=== PATIENT | male | born 1970 | race Caucasian/White ===

== ENCOUNTER → 2016-12-24 | Outpatient (CLI) | payer BC ==
--- NOTE | 2016-12-27 07:32 | XR ---
EXAMINATION TYPE: XR abdomen 1V DATE OF EXAM: 12/24/2016 5:02 PM COMPARISON: NONE HISTORY: Pain TECHNIQUE: Single supine KUB image of the abdomen is obtained FINDINGS: Small bowel demonstrates no evidence for dilatation or air fluid levels. Gas and fecal material is seen in non-distended colon. No convincing evidence for pneumoperitoneum. No unusual calcifications. The lung bases are clear. The osseous structures are intact. IMPRESSION: 1. Overall nonobstructive bowel gas pattern.
== END ==
LOC: RADXRYALE 16:59
PROVIDERS: ATTEND Physician Assistant Medical
DX: M54.40 Lumbago with sciatica, unspecified side (principal)
CPT/HCPCS: 74000

== ENCOUNTER → 2016-12-31 | Outpatient (CLI) | payer BC ==
--- NOTE | 2016-12-31 11:16 | US ---
EXAMINATION TYPE: US kidneys/renal and bladder DATE OF EXAM: 12/31/2016 9:51 AM COMPARISON: NONE CLINICAL HISTORY: M45.5 LOW BACK PAIN,R31.9 HEMATURIA. EXAM MEASUREMENTS: Right Kidney: 13.6 x 5.2 x 5.4 cm Left Kidney: 12.9 x 5.6 x 5.2 cm TECHNOLOGIST IMPRESSION: Patient of large body habitus Right Kidney: No hydronephrosis or masses seen, measures large Left Kidney: No hydronephrosis or masses seen, measures large Bladder: wnl There is no evidence for hydronephrosis at this point in time. No nephrolithiasis is seen. No akiko s are identified. The urinary bladder is anechoic. Bilateral ureteral jets are seen. IMPRESSION: Normal renal ultrasound.
== END | disposition home or self-care (01) ==
LOC: RADUSWWP 09:06
PROVIDERS: ATTEND Family Medicine
DX: R31.9 Hematuria, unspecified (principal); M54.5 Low back pain
CPT/HCPCS: 76770

== ENCOUNTER → 2017-07-13 | Outpatient (CLI) | payer BC ==
[2017-07-13 19:03] LABS: CH 28.6; CHCM 34.4; HCT 42.3 % (39.0-53.0); HDW 2.68; HGB 14.9 gm/dL (13.0-17.5); MCH 29.4 pg (25.0-35.0); MCHC 35.1 g/dL (31.0-37.0); MCV 83.6 fL (80.0-100.0); RBC 5.06 m/uL (4.30-5.90); RDW 13.6 % (11.5-15.5); WBC 5.6 k/uL (3.8-10.6)
[2017-07-13 19:19] LABS: Anion Gap 9 mmol/L; Blood Urea Nitrogen 17 mg/dL (9-20); Carbon Dioxide 27 mmol/L (22-30); Chloride 107 mmol/L (98-107); Non-African American GFR(MDRD) >60 (>60 ml/min/1.73 sqM); Potassium 4.1 mmol/L (3.5-5.1); Sodium 143 mmol/L (137-145)
== END | disposition home or self-care (01) ==
LOC: LAB 18:35
PROVIDERS: ATTEND Internal Medicine Interventional Cardiology
DX: Z01.812 Encounter for preprocedural laboratory examination (principal); R07.9 Chest pain, unspecified
CPT/HCPCS: 80051; 82565; 84520; 85027

== ENCOUNTER 2017-07-19 08:01 | Day surgery (SDC) | payer BC ==
[2017-07-14 09:52] VITALS: BMI 43.0
[~2017-07-19 08:01] MED LIST: ALPRAZolam 0.25 MG TAB PO PRN; ALPRAZolam 0.5 MG TAB PO PRN; ASPIRIN 325 MG TAB PO STA; ATORVASTATIN 80 MG TAB PO STA; NITROGLYCERIN SL TABS 0.4 MG TAB SUBLINGUAL PRN; SODIUM CHLORIDE 0.9% 1,000 ML in EMPTY BAG 1 BAG IV ONE
[2017-07-19] MEDS: SODIUM CHLORIDE 0.9% 1,000 ML IV ONE ×2 (08:30→09:15)
[2017-07-19 08:31] VITALS: RESP 16; TEMP 98.2
[2017-07-19] MEDS ORDERED: LIDOCAINE 2% INJ 20 MG/ML (20 ML MDV) ONE (08:48)
[2017-07-19] MEDS ORDERED: VERAPAMIL 2.5 MG/ML 2 ML AMP ONE (08:48)
[2017-07-19] MEDS ORDERED: MIDAZOLAM 2 MG/2 ML VIAL ONE (09:05)
[2017-07-19] MEDS ORDERED: MIDAZOLAM 2 MG/2 ML VIAL IV ONE (09:14)
[2017-07-19] MEDS ORDERED: HEPARIN SODIUM 1,000 UN/ML (10ML VL) ONE (09:20)
[2017-07-19] MEDS ORDERED: HEPARIN SODIUM 1,000 UN/ML (10ML VL) IV ONE (09:21)
[2017-07-19] MEDS: VERAPAMIL SYRINGE (5 MG/10 ML) IV ONE ×2 (09:21→09:30)
[2017-07-19] MEDS ORDERED: IOHEXOL 350 MG/ML 125ML BOTTLE INJ ONE (09:29)
[2017-07-19] MEDS ORDERED: RX INFO: IV CONTRAST WAS GIVEN 1 EACH MISC MISCELLANE PRN (09:38)
[2017-07-19] MEDS ORDERED: SODIUM CHLORIDE 0.9% 1,000 ML IV SCH (09:45)
--- NOTE | 2017-07-19 10:37 | CC ---
CARDIAC CATHETERIZATION REPORT PERFORMING PHYSICIAN: Devonte Hatfield M.D., knife finisher. PROCEDURE PERFORMED: 1. Selective right and left coronary angiogram. 2. Left heart catheterization. 3. Left ventriculography. INDICATION: This is a pleasant 47-year-old male gentleman with a past medical history significant for hypertension, who was experiencing chest discomfort and underwent a stress echocardiogram which showed EKG changes consistent with ischemia. He was brought today to undergo a heart catheterization. APPROACH: Right radial artery. COMPLICATION: None. LEVEL OF SEDATION: Moderate with a sedation length of 17 minutes. PROCEDURE DESCRIPTION: After obtaining an informed consent, the patient was brought to the cardiac sawyer cork slabs. The right common femoral artery was cannulated using micropuncture technique. The micropuncture wire passed easily. Then I placed a 6-Montserratian sheath in the right common femoral artery. Subsequently I gave the patient 2 mg of verapamil IA and 3000 units of heparin IV. After that, I did selective right and left coronary angiogram using JR4 and JL3.5 catheters. Both catheters were 5-Montserratian. After that, I did left heart catheterization and subsequently LV gram using 5-Montserratian catheter as well which was a pigtail catheter. The procedure was completed without any complication. SELECTIVE CORONARY ANGIOGRAM: 1. The right coronary artery is a medium-caliber vessel and it is a nondominant vessel. It is angiographically normal. 2. The left main is angiographically normal. It bifurcates into a left circumflex and left anterior descending artery. 3. The left circumflex is a large-caliber vessel. It is a dominant vessel. The proximal left circumflex is angiographically normal. The mid left circumflex is normal as well and gives rise into a large OM branch which seems to be angiographically normal. The left circumflex distally is normal and bifurcates into PDA and PLV branches. Both are angiographically normal. 4. The left anterior descending artery. The proximal LAD is angiographically normal. The mid LAD is normal and gives rise into a large diagonal branch which seems to be angiographically normal. The mid LAD distally he is angiographically normal. HEMODYNAMICS: The left ventricular end-diastolic pressure was 12 mmHg and no gradient was identified across aortic valve. Left ventriculography was performed in the [place] projection and using a power injection. Left ventricular systolic function is normal with EF about 50% without any wall motion abnormalities. CONCLUSION: 1. Normal coronary angiogram. 2. Dominant left circumflex coronary system. 3. Normal left ventricular end-diastolic pressure. 4. Normal left ventricular systolic function. MMODL / IJN: [id number] /
[2017-07-19 12:22] VITALS: BP 144/72; PULSE 72
== END 2017-07-19 14:43 | disposition home or self-care (01) ==
LOC: CATHCVL 08:01
PROVIDERS: ATTEND Internal Medicine Interventional Cardiology
DX: R07.89 Other chest pain (principal); R94.39 Abnormal result of other cardiovascular function study; I10 Essential (primary) hypertension; E78.5 Hyperlipidemia, unspecified; Z79.899 Other long term (current) drug therapy
CPT/HCPCS: 93458; 99152; C1894; J2250; J1644; Q9967

== ENCOUNTER → 2018-06-06 | Outpatient (CLI) | payer BC ==
--- NOTE | 2018-06-06 18:15 | US ---
EXAMINATION TYPE: US venous doppler duplex LE BI DATE OF EXAM: 06/06/2018 6:07 PM COMPARISON: NONE CLINICAL HISTORY: I82.401,I82.402,M79.661,M79.662 Leg pain/swelling. SIDE PERFORMED: Bilateral TECHNIQUE: The lower extremity deep venous system is examined utilizing real time linear array sonog peggy with graded compression, doppler sonography and color-flow sonography. VESSELS IMAGED: External Iliac Vein (EIV) Common Femoral Vein Deep Femoral Vein Greater Saphenous Vein * Femoral Vein Popliteal Vein Small Saphenous Vein * Proximal Calf Veins (* superficial vessels) Technically difficult study, morbidly obese patient. Right Leg: Negative for DVT Left Leg: Negative for DVT IMPRESSION: Negative exam. No evidence of deep venous thrombosis in both legs.
== END | disposition home or self-care (01) ==
LOC: RADUSMAIN 17:29
PROVIDERS: ATTEND Orthopaedic Surgery
DX: M79.661 Pain in right lower leg (principal); M79.662 Pain in left lower leg; Z86.718 Personal history of other venous thrombosis and embolism
CPT/HCPCS: 93970

== ENCOUNTER → 2019-02-06 | Outpatient (CLI) | payer BC ==
--- NOTE | 2019-02-07 10:03 | XR ---
EXAMINATION TYPE: XR foot complete LT DATE OF EXAM: 02/06/2019 COMPARISON: None HISTORY: Pain fifth metatarsal TECHNIQUE: Three-view left foot is examined. FINDINGS: No acute fractures are evident. Joint spaces are preserved. Soft tissues are normal. Follow-up exams can be performed 7-10 days from acute trauma for continued pain. IMPRESSION: 1. Normal three-view left foot. 2. No suspicious osseous abnormality 5th Metatarsal
== END | disposition home or self-care (01) ==
LOC: RADXRYALE 16:26
PROVIDERS: ATTEND Physician Assistant Medical
DX: M79.672 Pain in left foot (principal)

== ENCOUNTER → 2019-12-26 | Outpatient (CLI) | payer BC ==
--- NOTE | 2019-12-27 07:17 | XR ---
EXAMINATION TYPE: XR knee complete LT DATE OF EXAM: 12/26/2019 CLINICAL HISTORY: Increasing acute on chronic left knee pain TECHNIQUE: Three views of the left knee are obtained. COMPARISON: None. FINDINGS: There is no acute fracture/dislocation evident in left knee. The tri-compartment joint sp aces appear aligned with small bicompartmental osteophytes of the patellofemoral compartment and medi al compartment. The overlying soft tissue appears unremarkable. IMPRESSION: There is no acute fracture or dislocation in the left knee. Mild bicompartmental arthrop athy.
== END | disposition home or self-care (01) ==
LOC: RADXRYALE 15:47
PROVIDERS: ATTEND Physician Assistant
DX: M12.862 Other specific arthropathies, not elsewhere classified, left knee (principal)

== ENCOUNTER 2020-09-01 10:21 | Day surgery (SDC) | payer BC ==
[2020-08-29 12:47] VITALS: BMI 43.0
[~2020-09-01 10:21] MED LIST changes: -ALPRAZolam 0.25 MG TAB PO PRN; -ALPRAZolam 0.5 MG TAB PO PRN; -ASPIRIN 325 MG TAB PO STA; -ATORVASTATIN 80 MG TAB PO STA; +LACTATED RINGERS 1,000 ML IV SCH; -NITROGLYCERIN SL TABS 0.4 MG TAB SUBLINGUAL PRN; -SODIUM CHLORIDE 0.9% 1,000 ML in EMPTY BAG 1 BAG IV ONE
[2020-09-01 10:44] VITALS: RESP 16; TEMP 97.2
[2020-09-01] MEDS ORDERED: LIDOCAINE 1% (10MG/ML) FOR IV START INTRADERMA ONE (10:45)
[2020-09-01] MEDS ORDERED: PROPOFOL 10 MG/ML 20 ML VIAL IV ONE (11:28)
[2020-09-01] MEDS ORDERED: LIDOCAINE 1% INJ 10MG/ML (20 ML MDV) ONE (11:28)
--- NOTE | 2020-09-01 11:58 | P.PCN ---
Date of Procedure: 09/01/20 Description of Procedure: BRIEF HISTORY: Patient is a 50-year-old male presented for outpatient colonoscopy for family history of colon cancer. He reports having multiple colonoscopies in the past starting at the age of 39. His father was diagnosed with colon cancer at the age of 40. PROCEDURE PERFORMED: Colonoscopy with polypectomy . PREOPERATIVE DIAGNOSIS: Family history of colon cancer, last colonoscopy 5 years ago. ESTIMATED BLOOD LOSS: Minimal. IV sedation per Anesthesia. PROCEDURE: After informed consent was obtained, the patient, was brought into the endoscopy unit. IV sedation was administered by Anesthesia under continuous monitoring. Digital rectal examination was normal. Initially the Olympus CF-190 flexible video colonoscope was then inserted in the rectum, gradually advanced into the cecum without any difficulty. Careful examination was performed as the scope was gradually being withdrawn. Ileocecal valve and the appendiceal orifice were visualized and appeared normal. Prep was excellent. Mucosa of the cecum, ascending colon, transverse colon, descending colon, sigmoid colon, and rectum appeared normal. A small 3 mm transverse colon polyp was removed with cold snare polypectomy. Retroflexion was performed in the rectum and no lesions were seen. The patient tolerated the procedure well. IMPRESSION: Small transverse colon polyp removed with cold snare polypectomy. Otherwise normal-appearing colon from rectum to cecum. RECOMMENDATIONS: Findings of this examination were discussed with the patient in his . Okay to resume diet. Okay to resume medications. Await pathology from polypectomy. Would recommend repeat colonoscopy in 5 years for family history of colon cancer..
[2020-09-01 12:47] VITALS: BP 108/75; PULSE 51
== END 2020-09-01 12:55 | disposition home or self-care (01) ==
LOC: ORWHC2ENDO 10:21
PROVIDERS: ATTEND Internal Medicine
DX: Z12.11 Encounter for screening for malignant neoplasm of colon (principal); D12.3 Benign neoplasm of transverse colon; Z80.0 Family history of malignant neoplasm of digestive organs; I10 Essential (primary) hypertension; E78.5 Hyperlipidemia, unspecified; M19.90 Unspecified osteoarthritis, unspecified site; E66.01 Morbid (severe) obesity due to excess calories; Z68.42 Body mass index [BMI] 45.0-49.9, adult; Z79.899 Other long term (current) drug therapy; Z98.890 Other specified postprocedural states
CPT/HCPCS: 88305; 45385; J2001; J2704

== ENCOUNTER → 2020-09-02 | Outpatient (CLI) | payer BC ==
--- NOTE | 2020-09-02 14:15 | MM ---
Reason for exam: clinical finding. Physical Findings: Nurse Summary: 1cm nodule in the right breast at 9 o'clock (nurse shell). [facility] Mammo w CAD PRAKASH Bilateral CC and MLO view(s) were taken. The breast tissue is almost entirely fat. Vague retroareolar density right breast. These results were verbally communicated with the patient and result sheet given to the patient on 09/02/20. ASSESSMENT: Incomplete: need additional imaging evaluation, BI-RAD 0 RECOMMENDATION: Ultrasound of the right breast. Manage patient on a clinical basis.
--- NOTE | 2020-09-02 14:17 | USB ---
Reason for exam: additional evaluation requested from abnormal screening. US Breast Workup Limited RT Right limited breast ultrasound including focal area of concern, retroareolar and axilla demonstrates a 1.4 x 1.0 x 1.5cm hypoechoic lesion at the posterior nipple. Probable gynecomastia. These results were verbally communicated with the patient and result sheet given to the patient on 09/02/20. ASSESSMENT: Benign, BI-RAD 2 RECOMMENDATION: Clinical management of the right breast. Manage patient on a clinical basis.
--- NOTE | 2020-09-04 11:44 | USB ---
Reason for exam: additional evaluation requested from abnormal screening. US Breast Limited RT Right limited breast ultrasound including focal area of concern, retroareolar and axilla demonstrates a 1.4 x 1.0 x 1.5cm hypoechoic lesion at the posterior nipple. Probable gynecomastia. These results were verbally communicated with the patient and result sheet given to the patient on 09/02/20. ASSESSMENT: Benign, BI-RAD 2 RECOMMENDATION: Clinical management of the right breast. Manage patient on a clinical basis.
== END | disposition home or self-care (01) ==
LOC: RADMAMWWP 12:54
PROVIDERS: ATTEND Family Medicine
DX: N63.41 Unspecified lump in right breast, subareolar (principal)
CPT/HCPCS: 77066

== ENCOUNTER → 2021-03-12 | Outpatient (CLI) | payer BC ==
--- NOTE | 2021-03-12 22:43 | CONS ---
CONSULTATION DATE OF SERVICE: 03/12/2021 This 50-year-old gentleman has been evaluated in the sleep center for possible obstructive sleep apnea-hypopnea syndrome. HISTORY OF PRESENT ILLNESS/SLEEP-WAKE EVALUATION: Patient's usual sleep schedule on weekdays is from 9 p.m. to 3 a.m. and on weekends he sleeps longer in the morning. Usually no problems with falling asleep. He usually sleeps on the side or different positions. According to his , he snores and wakes up from sleep up to 6 times. Usually no episodes of nocturia. Positive history of witnessed episodes by his of stopped breathing during sleep. In the morning the patient wakes up tired, falling asleep during the day. [place] Sleepiness Scale is in very high range at 15. Patient dozes off in the afternoon or in the evening. No vivid dreams during naps. No history of hypnagogic hallucinations, sleep paralysis or cataplexy. PAST MEDICAL HISTORY: Positive for hypertension, hyperlipidemia and swelling of the legs. PAST SURGICAL HISTORY: Hernia repair, bilateral arthroscopic knee surgeries. SOCIAL HISTORY: Negative for smoking or using alcohol. MEDICATIONS: 1. Atenolol/chlorthalidone 50/25 mg once a day. 2. Simvastatin 40 mg once a day. 3. Furosemide 20 mg twice a week. FAMILY HISTORY: Cancer. REVIEW OF SYSTEMS: No fevers. No double vision. No recent chest pain. No shortness of breath. No abdominal pain. No bleeding episodes. No blood in the urine. No seizure episodes. Multiple awakenings from sleep, snoring, witnessed episodes of stopped breathing during sleep, sexual dysfunction. PHYSICAL EXAMINATION: GENERAL: A pleasant gentleman without distress. VITAL SIGNS: BP 151/88, HR 67, RR 18, height 5 feet 10 inches, weight 337.4, body mass index 47.9. Neck 20 inches in circumference. Oxygen saturation at room air 97%. HEENT: PERRLA, EOMI. Evaluation of oropharynx showed tongue protrudes midline. Extremely low position of soft palate. Mallampati IV. NECK: Supple. No JVD. Thyroid is not palpable. Wide neck; 20 inches in circumference. LUNGS: Clear to percussion and to auscultation. Good air exchange. No wheezing or rhonchi. HEART: S1, S2 regular. No murmurs, gallops or rubs. ABDOMEN: Obese. EXTREMITIES: One plus ankle edema. ICING MACHINE OPERATOR: Awake, alert, and oriented X3. Cranial nerves 2 to 7 intact. There is no fasciculation or atrophy. noted. No focal deficits observed. IMPRESSION: 1. Loud snoring with witnessed episodes of stopped breathing during sleep, multiple awakenings from sleep, extremely low position of soft palate, wide neck, sleepiness with high [place] Sleepiness Scale of 15; obstructive sleep apnea-hypopnea syndrome. 2. Morbid obesity. BMI 47.9. 3. Hypertension. 4. Hyperlipidemia. 5. History of swelling of legs. 6. Status post hernia repair. 7. Status post bilateral arthroscopic knee surgery. 8. 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 PLAN: 1. Polysomnography for evaluation of patient's breathing during sleep. 2. CPAP/BiPAP titration if sleep study confirms obstructive sleep apnea-hypopnea syndrome. 3. Preferable position during sleep on the side. 4. No driving if patient feels any sleepiness. 5. I will see patient for follow up visit to explain results of testing and following plan. Thank you very much for referring this patient for consultation. Sincerely, King Ruiz MD, PhD, FAASM Diplomat of [place] [employer] [place] [employer] Raw Scales Operator of [facility] MMODL / IJN: [id number] /
== END ==
LOC: SLEEP 14:24
PROVIDERS: ATTEND Internal Medicine
DX: G47.33 Obstructive sleep apnea (adult) (pediatric) (principal); E78.5 Hyperlipidemia, unspecified; E66.01 Morbid (severe) obesity due to excess calories; I10 Essential (primary) hypertension; Z68.42 Body mass index [BMI] 45.0-49.9, adult; Z96.653 Presence of artificial knee joint, bilateral; Z98.890 Other specified postprocedural states; Z87.2 Personal history of diseases of the skin and subcutaneous tissue; Z79.899 Other long term (current) drug therapy
CPT/HCPCS: 99202

== ENCOUNTER → 2021-06-04 | Outpatient (CLI) | payer BC ==
--- NOTE | 2021-06-04 17:16 | XR ---
EXAMINATION TYPE: XR foot complete RT DATE OF EXAM: 06/04/2021 COMPARISON: NONE HISTORY: 51 year-old male right foot pain fifth metatarsal TECHNIQUE: 3 views FINDINGS: Tiny plantar heel spur. No acute fracture, subluxation, or dislocation seen. Joint spaces are maintai meaghan. IMPRESSION: Tiny plantar heel spur. No acute osseous abnormality seen.
== END | disposition home or self-care (01) ==
LOC: RADXRYALE 15:07
PROVIDERS: ATTEND Family Medicine
DX: M77.31 Calcaneal spur, right foot (principal)

== ENCOUNTER → 2021-07-09 | Outpatient (CLI) | payer BC ==
--- NOTE | 2021-07-09 11:52 | USB ---
Reason for exam: clinical finding. Indicated problem(s): palpable abnormality in both breasts. Physical Findings: Nurse did not find any significant physical abnormalities on exam. US Breast Limited BILAT Right limited breast ultrasound including focal area of concern, retroareolar and axilla demonstrates a 1.7 x 1.6 x 0.8cm gynecomastia at the posterior nipple versus other etiology, similar to 09/02/20 possible recurrent tissue. Left limited breast ultrasound including focal area of concern, retroareolar and axilla demonstrates a 1.1 x 1.1 x 1.0cm gynecomastia at the posterior nipple, suspected gynecomastia not on this side as well. Interval right sided surgery. Subareolar bilateral breasts at palpable. These results were verbally communicated with the patient and result sheet given to the patient on 07/09/21. ASSESSMENT: Incomplete: need additional imaging evaluation, BI-RAD 0 RECOMMENDATION: Special view mammogram of both breasts.
--- NOTE | 2021-07-09 11:56 | MM ---
Reason for exam: clinical finding. Last mammogram was performed 10 months ago. Indicated problem(s): palpable abnormality in both breasts. Physical Findings: Nurse Summary: 1-2cm nodule in the right breast behind nipple and a 1-2cm nodule in the left breast behind nipple (nurse db). [facility] Mammo w CAD PRAKASH Bilateral CC and MLO view(s) were taken. Prior study comparison: September 02, 2020, bilateral MG diagnostic mammo w CAD PRAKASH. There are scattered fibroglandular densities. Minimal recurrent gynecomastia right subareolar region. Very mild progressive left gynecomastia. No significant new findings when compared with previous films. These results were verbally communicated with the patient and result sheet given to the patient on 07/09/21. ASSESSMENT: Benign, BI-RAD 2 RECOMMENDATION: Clinical management of both breasts. Manage on a clinical basis with regard to minimal to very mild gynecomastia greater in the left breast.
== END | disposition home or self-care (01) ==
LOC: RADUSWWP 09:44
PROVIDERS: ATTEND Student in an Organized Health Care Education/Training Program
DX: N62 Hypertrophy of breast (principal); R92.2 Inconclusive mammogram
CPT/HCPCS: 77066

== ENCOUNTER → 2022-04-22 | Outpatient (CLI) | payer BC ==
--- NOTE | 2022-04-22 14:35 | US ---
EXAMINATION TYPE: US carotid duplex BILAT DATE OF EXAM: 04/22/2022 COMPARISON: NONE CLINICAL HISTORY: R51.9 Headache R42 Dizziness. Right neck tightness for 1 hour, no h/o stroke EXAM MEASUREMENTS: RIGHT: Peak Systolic Velocity (PSV) cm/sec ----- Right CCA: 87.5 ----- Right ICA: 72.9 ----- Right ECA: 97.8 ICA/CCA ratio: 0.8 RIGHT: End Diastole cm/sec ----- Right CCA: 29.2 ----- Right ICA: 27.6 ----- Right ECA: 18.9 LEFT: Peak Systolic Velocity (PSV) cm/sec ----- Left CCA: 81.7 ----- Left ICA: 69.2 ----- Left ECA: 87.5 ICA/CCA ratio: 0.8 LEFT: End Diastole cm/sec ----- Left CCA: 25.6 ----- Left ICA: 24.7 ----- Left ECA: 13.8 VERTEBRALS (direction of flow): Right Vertebral: Antegrade Left Vertebral: Antegrade Rhythm: Normal Mild homogeneous plaque with no stenosis seen IMPRESSION: No evidence for hemodynamically significant stenosis. Criteria for Assigning % of Stenosis / Diameter reduction (Estimation based on the indirect measurements of the internal carotid artery velocities (ICA PSV). 1. Normal (no stenosis)=ICA PSV < 125 cm/s: ratio < 2.0: ICA EDV<40 cm/s. 2. Less than 50% stenosis=ICA PSV < 125 cm/s: ratio < 2.0: ICA EDV<40 cm/s. 3. 50 to 69% stenosis=ICA PSV of 125 to 230 cm/s: ration 2.0 ? 4.0: ICA EDV 40-100 cm/s. 4. Greater than 70% stenosis to near occlusion= ICA PSV > 230 cm/s: ratio > 4.0: ICA EDV > 100 cm/s. 5. Near occlusion= ICA PSV velocities may be low or undetectable: variable ratio and ICA EDV. 6. Total occlusion=unable to detect flow.
== END | disposition home or self-care (01) ==
LOC: RADUSWWP 13:40
PROVIDERS: ATTEND Family Medicine
DX: I65.23 Occlusion and stenosis of bilateral carotid arteries (principal)
CPT/HCPCS: 93880